=== PATIENT | male | born 1990 ===

== ENCOUNTER 2023-04-16 21:24 | Emergency (ER) | payer OTHER, SELFPAY ==
[2023-04-16 21:27] VITALS: BP 116/66; PULSE 76; RESP 16; TEMP 36.4; O2SAT 98; BMI 22.7
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
[2023-04-16 22:06] VITALS: PULSE 65; O2SAT 99
[2023-04-16 22:07] VITALS: BP 107/51; PULSE 70; O2SAT 99
[2023-04-16 22:30] VITALS: BP 97/54; PULSE 68; O2SAT 98
[2023-04-16 23:00] VITALS: BP 99/55; PULSE 66; O2SAT 98
[2023-04-16 23:30] VITALS: BP 99/55; PULSE 70; O2SAT 98
[2023-04-17] VITALS (18 sets, daily range): BP systolic 92–133; BP diastolic 57–78; PULSE 68–100; O2SAT 92–99
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
[2023-04-17] MEDS: ONDANSETRON 4 MG/2 ML INJ IV (01:34)
[2023-04-17] MEDS: HYDROMORPHONE 0.5 MG INJ IV (01:34)
[2023-04-17] MEDS: KETAMINE 500 MG/10 ML INJ 65 MG IV (01:36)
[2023-04-17] MEDS: OXYCODONE/ACETAMINOPHEN 5/325 TABLET 1 TAB PO (03:05)
[2023-04-17] MEDS: OXYCODONE/APAP 5/325 PREPACK 1 BOTTLE MISC (03:05)
== END 2023-04-17 03:07 | disposition home or self-care (01) ==
PROVIDERS: Emergency Provider Emergency Medicine
DX: S62.102A Fracture of unspecified carpal bone, left wrist, initial encounter for closed fracture (principal); S09.90XA Unspecified injury of head, initial encounter; V19.9XXA Pedal cyclist (driver) (passenger) injured in unspecified traffic accident, initial encounter
CPT/HCPCS: 25605; 73090; 73100; 73110; 96374; 96375; 99152; 99284; J1170; J2405